=== PATIENT | female | born 1985 | race Caucasian/White ===

== ENCOUNTER → 2016-04-01 | Outpatient (CLI) | payer OTHER, MEDICAID ==
[2016-04-01 09:32] LABS: BASO % 0.6 % (0.0-1.0); EOS # 0.1 K/mm3 (0.0-0.50); EOS % 3.6 % (0.0-3.0); LARGE UNSTAINED CELL # 0.1 K/mm3 (0.0-0.4); LARGE UNSTAINED CELL % 2.7 % (0.0-4.0); LYMPH # 0.9 K/mm3 (1.5-4.5); LYMPH % 24.7 % (24.0-44.0); MEAN CORPUSCULAR HEMOGLOBIN 21.5 pg (27.0-33.0); MEAN CORPUSCULAR HGB CONC 31.1 g/dl (32.0-36.5); MONO # 0.3 K/mm3 (0.0-0.8); MONO % 6.8 % (0.0-5.0); NEUTROPHILS # 2.3 K/mm3 (1.8-7.7); NEUTROPHILS % 61.6 % (36.0-66.0); PLATELET COUNT, AUTOMATED 236 k/mm3 (150-450); RED CELL DISTRIBUTION WIDTH 14.8 % (11.5-14.5); WHITE BLOOD COUNT 3.6 K/mm3 (4.0-10.0)
[2016-04-01 09:56] LABS: ADD MORPHOLOGY? YES
[2016-04-01 09:58] LABS: FERRITIN 3 NG/ML (8-252)
[2016-04-01 10:02] LABS: ANISOCYTOSIS 1+; HYPOCHROMASIA 2+; MICROCYTOSIS 3+; OVALOCYTES 1+
== END ==
LOC: M WUC 08:31
PROVIDERS: ATTEND Family Medicine Addiction Medicine
DX: D64.9 Anemia, unspecified (principal)

== ENCOUNTER → 2016-08-02 | Outpatient (REF) | payer OTHER | LOC: M LAB REF 17:08 | PROVIDERS: ATTEND Advanced Practice Midwife | DX: Z12.4 Encounter for screening for malignant neoplasm of cervix (principal); R87.610 Atypical squamous cells of undetermined significance on cytologic smear of cervix (ASC-US) ==

== ENCOUNTER → 2016-09-27 | Day surgery (SDC) | payer OTHER, MEDICAID ==
[~2016-09-27] VITALS: Ht 167.6 cm; Wt 95.3 kg
[~2016-09-27] MED LIST: BUPIVACAINE HCL 0.25% 10 ML VIAL As Ordered ONE; IBUP1TAB7 PO; KETOROLAC 30 MG/ML VIAL (J1885) IV SCH; KETOROLAC 60 MG/2 ML VIAL (J1885) As Ordered ONE; LR 1,000 ML IV ONE; LR 1,000 ML IV SCH; MIDAZOLAM INJ 2 MG/2 ML VIAL (J2250) As Ordered ONE; ONDANSETRON 4MG/2ML VIAL (J2405) As Ordered ONE; ONDANSETRON 4MG/2ML VIAL (J2405) IV PRN; PERCOCET 5MG/325MG TAB PO PRN; PERCOCET PO; PROPOFOL 500 MG/50 ML VIAL As Ordered ONE; SCOPOLAMINE 1.5 MG TRANSDERMAL As Ordered ONE; SUGAMMADEX SODIUM 500 MG/5 ML VIAL (BRIDION) As Ordered ONE; ZOLO100T PO; dexameTHASONE 4 MG/ML 1ML VIAL (J1100) As Ordered ONE; fentaNYL 100 MCG/2 ML INJECTION (J3010) As Ordered ONE; fentaNYL 100 MCG/2 ML INJECTION (J3010) IV PRN
[2016-09-27 10:02] LABS: MEAN CORPUSCULAR HEMOGLOBIN 20.3 pg (27.0-33.0); MEAN CORPUSCULAR HGB CONC 30.2 g/dl (32.0-36.5); MEAN CORPUSCULAR VOLUME 67.2 fl (80.0-96.0); RED CELL DISTRIBUTION WIDTH 16.4 % (11.5-14.5); WHITE BLOOD COUNT 4.5 K/mm3 (4.0-10.0)
[2016-09-27 10:24] LABS: CONTROL LINE HCG INT CTR LINE PRESENT
--- NOTE | 2016-09-27 12:50 | RO ---
DATE OF PROCEDURE: 09/27/2016 PREPROCEDURE DIAGNOSIS: Satisfied parity with undesired fertility. POSTPROCEDURE DIAGNOSIS: Satisfied parity with undesired fertility. PROCEDURE: Laparoscopic bilateral tubal ligation using Filshie clips. SURGEON: Lashae Nieves M.D. TONGUE STITCHER: Sagar, PGY-1 ANESTHESIA: General endotracheal anesthesia. ESTIMATED BLOOD LOSS: 5 mL. INTRAVENOUS FLUIDS: 700 mL of lactated Ringer solution. URINE OUTPUT: 400 mL. SPECIMENS: None. PREOPERATIVE ANTIBIOTICS: None. OPERATIVE FINDINGS: Patient with normal appearing uterus, bilateral adnexa, area in the posterior cul-de-sac consistent with peritoneal endometriosis. INDICATION FOR OPERATION: 31-year-old 2, para 2 who has expressed satisfied parity with undesired fertility. She has been counseled on alternative options for contraception and declined and desires to proceed with permanent sterilization. DESCRIPTION OF OPERATION: After informed consent was obtained and written consent was reviewed, the patient was brought to the operating room where general endotracheal anesthesia was obtained. She was then placed in the lithotomy position, and was prepped and draped in a normal sterile fashion. A time out in the operating room was then performed identifying the patient, procedure to be performed as well as drug allergies. A bivalve speculum was then placed in the vagina revealing the cervix. The anterior lip of the cervix was grasped with a single tooth tenaculum. A Hulka tenaculum was then advanced through the cervical os for means to manipulate the uterus. The single tooth tenaculum and speculum was then removed. A Lackey catheter was then placed and set to gravity. Gloves were changed and attention was turned to the patient's abdomen where 0.25% Marcaine was infused in umbilical region. This area was then incised and a 5 mm trocar and sleeve was advanced through the incision. The laparoscope was then replaced revealing intra- abdominal placement. Pneumoperitoneum was then obtained using CO2 gas. The abdomen was then surveyed showing with the above noted findings. A second port was placed. This was 2 cm above the pubis symphysis in the midline. This area was infused with 0.25% Marcaine. Incision was made in this area and an 8 mm trocar and sleeve was advanced through this incision under direct visualization. Next, the right fallopian tube was followed out to the fimbriated end. Using a Filshie clip applicator, a Filshie clip was applied in the mid isthmic portion of the fallopian tube with good blanching noted. The Filshie clip applicator was reloaded. The right fallopian tube was then followed out to the fimbriated end and using the Filshie clip applicator, a Filshie clip was then applied in mid isthmic portion of that fallopian tube with good blanching noted. Instruments were then removed from the patient's abdomen. The pneumoperitoneum was then released. Trocars were removed. Skin incisions closed with #4-0 Monocryl and was dressed with Dermabond. The tenaculum was then removed. Tenaculum sites were noted to be hemostatic. Lackey catheter was removed. The patient was taken out of lithotomy position, was awakened from general anesthesia and taken to recovery in stable condition. Counts were correct. MTDD
[2016-09-27 15:00] VITALS: BP 119/67
== END | disposition home or self-care (01) ==
LOC: M SDC 09:28
PROVIDERS: ATTEND Obstetrics & Gynecology
DX: Z30.2 Encounter for sterilization (principal); F41.9 Anxiety disorder, unspecified; Z79.899 Other long term (current) drug therapy
CPT/HCPCS: 36415; 58671; 84703; 85027; 86850; 86900; 86901; A4649; J1100; J1885; J2250; J2405; J3010

== ENCOUNTER → 2018-03-28 | Outpatient (REF) | payer OTHER, MEDICAID ==
[~2018-03-28] MED LIST changes: -BUPIVACAINE HCL 0.25% 10 ML VIAL As Ordered ONE; -KETOROLAC 30 MG/ML VIAL (J1885) IV SCH; -KETOROLAC 60 MG/2 ML VIAL (J1885) As Ordered ONE; -LR 1,000 ML IV ONE; -LR 1,000 ML IV SCH; -MIDAZOLAM INJ 2 MG/2 ML VIAL (J2250) As Ordered ONE; -ONDANSETRON 4MG/2ML VIAL (J2405) As Ordered ONE; -ONDANSETRON 4MG/2ML VIAL (J2405) IV PRN; -PERCOCET 5MG/325MG TAB PO PRN; -PROPOFOL 500 MG/50 ML VIAL As Ordered ONE; -SCOPOLAMINE 1.5 MG TRANSDERMAL As Ordered ONE; -SUGAMMADEX SODIUM 500 MG/5 ML VIAL (BRIDION) As Ordered ONE; -dexameTHASONE 4 MG/ML 1ML VIAL (J1100) As Ordered ONE; -fentaNYL 100 MCG/2 ML INJECTION (J3010) As Ordered ONE; -fentaNYL 100 MCG/2 ML INJECTION (J3010) IV PRN
[2018-03-30 15:05] LABS: HPV HYBRID CAPTURE II Negative (Negative)
== END ==
LOC: M LAB REF 09:21
PROVIDERS: ATTEND Advanced Practice Midwife
DX: Z12.4 Encounter for screening for malignant neoplasm of cervix (principal)

== ENCOUNTER → 2018-08-03 | Outpatient (CLI) | payer OTHER, MEDICAID ==
[2018-08-03 13:30] LABS: BASO % 0.8 % (0.0-1.0); EOS # 0.1 10^3/uL (0.0-0.50); EOS % 2.7 % (0.0-3.0); HEMATOCRIT 33.8 % (36.0-47.0); HEMOGLOBIN 9.5 g/dl (12.0-15.5); LYMPH # 1.1 10^3/uL (1.5-4.5); MEAN CORPUSCULAR HGB CONC 28.1 g/dl (32.0-36.5); MEAN CORPUSCULAR VOLUME 63.9 fl (80.0-96.0); MONO # 0.4 10^3/uL (0.0-0.8); MONO % 8.8 % (0.0-5.0); NEUTROPHILS # 3.1 10^3/uL (1.8-7.7); NEUTROPHILS % 64.5 % (36.0-66.0); PLATELET COUNT, AUTOMATED 412 10^3/uL (150-450); RED BLOOD COUNT 5.29 10^6/uL (4.00-5.40); WHITE BLOOD COUNT 4.8 10^3/uL (4.0-10.0)
[2018-08-03 13:32] LABS: APPEARANCE, URINE CLEAR (CLEAR); BACTERIA, URINE AUTO 1+ (NEGATIVE); BILIRUBIN, URINE AUTO NEGATIVE (NEGATIVE); BLOOD, URINE BLOOD NEGATIVE (NEGATIVE); COLOR, URINE STRAW (YELLOW); GLUCOSE, URINE (UA) AUTO NEGATIVE (NEGATIVE); KETONE, URINE AUTO NEGATIVE (NEGATIVE); LEUKOCYTE ESTERASE, URINE AUTO NEGATIVE (NEGATIVE); NITRITE, URINE AUTO NEGATIVE (NEGATIVE); PROTEIN, URINE AUTO NEGATIVE (NEGATIVE); RBC, URINE AUTO 0 /HPF (0-3); SPECIFIC GRAVITY URINE AUTO 1.005 (1.002-1.035); SQUAMOUS EPITHELIAL CELL UR AU 0 /HPF (0-6); UROBILINOGEN, URINE AUTO 0.2 mg/dL (0.0-2.0); WBC, URINE AUTO 0 /HPF (0-3)
[2018-08-03 13:42] LABS: ALBUMIN 3.9 GM/DL (3.2-5.2); ALT/SGPT 15 U/L (12-78); BILIRUBIN,TOTAL 0.5 MG/DL (0.2-1.0); BLOOD UREA NITROGEN 10 MG/DL (7-18); CALCIUM LEVEL 9.1 MG/DL (8.5-10.1); CARBON DIOXIDE LEVEL 27 MEQ/L (21-32); CHLORIDE LEVEL 108 MEQ/L (98-107); CHOLESTEROL LEVEL 157 MG/DL (<200); FREE T4 0.92 NG/DL (0.76-1.46); GLOMERULAR FILTRATION RATE > 60.0 (>60); GLUCOSE, FASTING 89 MG/DL (70-100); HDL CHOLESTEROL 48 MG/DL (>40); LDL CHOLESTEROL 99 MG/DL (<100); NON-HDL-C 109 MG/DL; POTASSIUM SERUM 4.5 MEQ/L (3.5-5.1); SODIUM LEVEL 140 MEQ/L (136-145); TOTAL PROTEIN 6.9 GM/DL (6.4-8.2); TRIGLYCERIDES LEVEL 49 MG/DL (<150)
[2018-08-03 13:45] LABS: TOTAL 25(OH) VITAMIN D 21.9 NG/ML (30.0-100.0)
[2018-08-03 14:15] LABS: HEMOGLOBIN A1c 5.1 %
[2018-08-04 14:11] LABS: Lyme Disease IgG/IgM Antibodie <0.91 ISR (0.00-0.90); Lyme Disease IgM Ab Quantitati <0.80 index (0.00-0.79)
== END ==
LOC: M WUC 08:39
PROVIDERS: ATTEND Family Medicine
DX: Z13.228 Encounter for screening for other metabolic disorders (principal); Z00.01 Encounter for general adult medical examination with abnormal findings

== ENCOUNTER → 2019-01-29 | Outpatient (REF) | payer OTHER, MEDICAID ==
[2019-01-29 15:26] LABS: BASO % 0.6 % (0.0-1.0); EOS # 0.1 10^3/uL (0.0-0.5); EOS % 1.4 % (0.0-3.0); HEMOGLOBIN 9.7 g/dl (12.0-15.5); LYMPH # 1.2 10^3/uL (1.5-5.0); LYMPH % 19.5 % (24.0-44.0); MEAN CORPUSCULAR HEMOGLOBIN 18.2 pg (27.0-33.0); MEAN CORPUSCULAR HGB CONC 27.7 g/dl (32.0-36.5); MEAN CORPUSCULAR VOLUME 65.8 fl (80.0-96.0); MONO # 0.6 10^3/uL (0.0-0.8); NEUTROPHILS # 4.3 10^3/uL (1.5-8.5); NEUTROPHILS % 69.2 % (36.0-66.0); PLATELET COUNT, AUTOMATED 316 10^3/uL (150-450); RED BLOOD COUNT 5.32 10^6/uL (4.00-5.40); WHITE BLOOD COUNT 6.2 10^3/uL (4.0-10.0)
[2019-01-29 16:01] LABS: TOTAL 25(OH) VITAMIN D 23.1 NG/ML (30.0-100.0)
== END ==
LOC: M LAB REF 14:48
PROVIDERS: ATTEND Family Medicine
DX: D64.89 Other specified anemias (principal); E55.9 Vitamin D deficiency, unspecified

== ENCOUNTER → 2019-07-25 | Outpatient (REF) | payer MEDICAID, OTHER ==
[~2019-07-25] MED LIST changes: +VALA1TAB5 PO; +VITA100054 PO; +[UNRECOGNIZED DRUG - OTHER] PO
== END ==
LOC: M LAB REF 09:53
PROVIDERS: ATTEND Internal Medicine Gastroenterology
DX: D50.9 Iron deficiency anemia, unspecified (principal)

== ENCOUNTER 2019-09-23 19:36 | Emergency (ER) | payer OTHER ==
[~2019-09-23] VITALS: Ht 167.6 cm; Wt 87.3 kg
[2019-09-23 19:36] VITALS: BP 131/82
[2019-09-23] MEDS ORDERED: BACT800T5 PO (19:41)
[2019-09-23] MEDS ORDERED: CEPHALEXIN 500 MG CAP PO ONE (20:15)
[2019-09-23] MEDS ORDERED: diphenhydrAMINE 50MG CAP PO ONE (20:15)
[2019-09-23] MEDS ORDERED: BENA25CA4 PO (20:17)
[2019-09-23] MEDS ORDERED: KEFL500C17 PO (20:17)
== END 2019-09-23 20:33 | disposition home or self-care (01) ==
LOC: M ED 19:36
DX: S30.861A Insect bite (nonvenomous) of abdominal wall, initial encounter (principal); D64.9 Anemia, unspecified; W57.XXXA Bitten or stung by nonvenomous insect and other nonvenomous arthropods, initial encounter; Y92.9 Unspecified place or not applicable; F41.9 Anxiety disorder, unspecified; Y99.9 Unspecified external cause status; Y93.9 Activity, unspecified; Z79.899 Other long term (current) drug therapy; Z88.2 Allergy status to sulfonamides; Z88.5 Allergy status to narcotic agent; Z88.8 Allergy status to other drugs, medicaments and biological substances

== ENCOUNTER 2019-09-26 21:05 | Emergency (ER) | payer OTHER ==
[~2019-09-26] VITALS: Ht 167.6 cm; Wt 87.2 kg
[~2019-09-26 21:05] MED LIST changes: +BACT800T5 PO; +BENA25CA4 PO; +KEFL500C17 PO
[2019-09-26 22:48] LABS: BASO % 0.6 % (0.0-1.0); EOS # 0.1 10^3/uL (0.0-0.5); EOS % 2.2 % (0.0-3.0); HEMATOCRIT 41.9 % (36.0-47.0); HEMOGLOBIN 13.8 g/dl (12.0-15.5); LYMPH # 1.5 10^3/uL (1.5-5.0); LYMPH % 29.7 % (24.0-44.0); MEAN CORPUSCULAR HEMOGLOBIN 26.8 pg (27.0-33.0); MEAN CORPUSCULAR HGB CONC 32.9 g/dl (32.0-36.5); MEAN CORPUSCULAR VOLUME 81.5 fl (80.0-96.0); MONO # 0.4 10^3/uL (0.0-0.8); MONO % 7.7 % (0.0-5.0); NEUTROPHILS % 59.4 % (36.0-66.0); PLATELET COUNT, AUTOMATED 328 10^3/uL (150-450); RED BLOOD COUNT 5.14 10^6/uL (4.00-5.40); WHITE BLOOD COUNT 5.1 10^3/uL (4.0-10.0)
[2019-09-26 23:20] LABS: ERYTHROCYTE SEDIMENTATION RATE 14 mm/hr (0-20)
[2019-09-26 23:25] LABS: BLOOD UREA NITROGEN 13 MG/DL (7-18); CALCIUM LEVEL 8.6 MG/DL (8.5-10.1); CARBON DIOXIDE LEVEL 29 MEQ/L (21-32); CHLORIDE LEVEL 106 MEQ/L (98-107); CREATININE FOR GFR 0.76 MG/DL (0.55-1.30); GLOMERULAR FILTRATION RATE > 60.0 (>60); GLUCOSE, FASTING 85 MG/DL (70-100); POTASSIUM SERUM 3.7 MEQ/L (3.5-5.1); SODIUM LEVEL 139 MEQ/L (136-145)
[2019-09-27] MEDS ORDERED: DOXYCYCLINE HYCLATE 100MG TABLET PO ONE
[2019-09-27] MEDS ORDERED: DOXY100C37 PO (00:13)
[2019-09-27 00:38] VITALS: BP 119/71
[2019-09-29 15:07] LABS: Lyme Disease IgG Ab 18 kDa Ban Absent (.); Lyme Disease IgG Ab 23 kDa Ban Present (.); Lyme Disease IgG Ab 28 kDa Ban Absent (.); Lyme Disease IgG Ab 30 kDa Ban Absent (.); Lyme Disease IgG Ab 39 kDa Ban Absent (.); Lyme Disease IgG Ab 41 kDa Ban Absent (.); Lyme Disease IgG Ab 45 kDa Ban Absent (.); Lyme Disease IgG Ab 58 kDa Ban Absent (.); Lyme Disease IgG Ab 66 kDa Ban Absent (.); Lyme Disease IgG Ab 93 kDa Ban Absent (.); Lyme Disease IgG West Blot Int Negative (.); Lyme Disease IgG/IgM Antibodie 2.36 ISR (0.00-0.90); Lyme Disease IgM Ab 23 kDa Ban Present (.); Lyme Disease IgM Ab 39 kDa Ban Present (.); Lyme Disease IgM Ab 41 kDa Ban Present (.); Lyme Disease IgM Ab Quantitati 9.12 index (0.00-0.79); Lyme Disease IgM West Blot Int Positive (.)
== END 2019-09-27 00:40 | disposition home or self-care (01) ==
LOC: M ED 21:05
DX: R21 Rash and other nonspecific skin eruption (principal); S30.860A Insect bite (nonvenomous) of lower back and pelvis, initial encounter; W57.XXXA Bitten or stung by nonvenomous insect and other nonvenomous arthropods, initial encounter; Y92.9 Unspecified place or not applicable; Y93.9 Activity, unspecified; Y99.9 Unspecified external cause status; Z79.899 Other long term (current) drug therapy; Z88.8 Allergy status to other drugs, medicaments and biological substances

== ENCOUNTER → 2019-11-18 | Outpatient (CLI) | payer OTHER ==
[~2019-11-18] MED LIST changes: +DOXY100C37 PO
== END ==
LOC: M LABSMTC 09:12
PROVIDERS: ATTEND Anesthesiology
DX: Z01.812 Encounter for preprocedural laboratory examination (principal); Z20.828 Contact with and (suspected) exposure to other viral communicable diseases
CPT/HCPCS: C9803; U0003

== ENCOUNTER 2019-11-23 10:59 | Day surgery (SDC) | payer OTHER ==
[~2019-11-23] VITALS: Ht 167.6 cm; Wt 83.9 kg
[~2019-11-23 10:59] MED LIST changes: +LIDOCAINE 2% 100MG/5ML SDV (FOR ANES.) As Ordered ONE; +NS 1,000 ML IV ONE; +propofoL 200 MG/20 ML VIAL As Ordered ONE
[2019-11-23] MEDS ORDERED: fentaNYL 100 MCG/2 ML INJECTION (J3010) As Ordered ONE (11:19)
[2019-11-23] MEDS ORDERED: propofoL 200 MG/20 ML VIAL As Ordered ONE (12:58)
[2019-11-23 13:30] VITALS: BP 124/79
--- NOTE | 2019-11-28 11:38 | ROOR ---
Patient Name: Allie Victoria Procedure Date: 11/23/2019 12:35 PM Date of : 1985 Age: 34 Room: [facility] Gender: Female Note Status: Finalized Procedure: Upper GI endoscopy Indications: Iron deficiency anemia Providers: Tex FOOTE MD Referring MD: [facility], Admin., Casie LIRIANO NP Requesting Provider: Medicines: Monitored Anesthesia Care Complications: No immediate complications. Procedure: Pre-Anesthesia Assessment: - The heart rate, respiratory rate, oxygen saturations, blood pressure, adequacy of pulmonary ventilation, and response to care were monitored throughout the procedure. The Endoscope was introduced through the mouth, and advanced to the third part of duodenum. The upper GI endoscopy was accomplished without difficulty. The patient tolerated the procedure well. Findings: The esophagus was normal. The stomach was normal. The examined duodenum was normal. Biopsies for histology were taken with a cold forceps in the second portion of the duodenum and in the third portion of the duodenum for evaluation of celiac disease. Impression: - Normal esophagus. - Normal stomach. - Normal examined duodenum. - Biopsies were taken with a cold forceps for evaluation of celiac disease. Recommendation: - Telephone endoscopist for pathology results in 2 weeks. Tex Foote MD Tex FOOTE MD 11/23/2019 12:49:27 PM Electronically signed by Tex FOOTE MD Number of Addenda: 0 Note Initiated On: 11/23/2019 12:35 PM Estimated Blood Loss: Estimated blood loss: none.
--- NOTE | 2019-11-28 11:38 | ROOR ---
Patient Name: Allie Victoria Procedure Date: 11/23/2019 12:37 PM Date of : 1985 Age: 34 Room: [id number] Gender: Female Note Status: Finalized Procedure: Colonoscopy Indications: Iron deficiency anemia Providers: Tex FOOTE MD Referring MD: Casie LIRIANO NP, [facility], Admin. Requesting Provider: Medicines: Monitored Anesthesia Care Complications: No immediate complications. Procedure: Pre-Anesthesia Assessment: - The heart rate, respiratory rate, oxygen saturations, blood pressure, adequacy of pulmonary ventilation, and response to care were monitored throughout the procedure. The Colonoscope was introduced through the anus and advanced to 10 cm into the ileum. The colonoscopy was performed without difficulty. The patient tolerated the procedure well. The quality of the bowel preparation was good. Findings: The perianal and digital rectal examinations were normal. The terminal ileum appeared normal. The colon (entire examined portion) appeared normal. Impression: - The examined portion of the ileum was normal. - The entire colon is normal. - No specimens collected. Recommendation: - Return to referring physician as previously scheduled. Tex Foote MD Tex FOOTE MD 11/23/2019 1:04:59 PM Electronically signed by Tex FOOTE MD Number of Addenda: 0 Note Initiated On: 11/23/2019 12:37 PM Estimated Blood Loss: Estimated blood loss: none.
== END 2019-11-23 13:40 | disposition home or self-care (01) ==
LOC: M OPP 10:59
PROVIDERS: ATTEND Internal Medicine Gastroenterology
DX: D50.9 Iron deficiency anemia, unspecified (principal); Z79.899 Other long term (current) drug therapy; Z88.5 Allergy status to narcotic agent
CPT/HCPCS: 43239; 45378; 88305; J3010

== ENCOUNTER → 2019-12-04 | Outpatient (REF) | payer OTHER, MEDICAID ==
[~2019-12-04] MED LIST changes: -LIDOCAINE 2% 100MG/5ML SDV (FOR ANES.) As Ordered ONE; -NS 1,000 ML IV ONE; -propofoL 200 MG/20 ML VIAL As Ordered ONE
[2019-12-04 12:51] LABS: ALBUMIN 3.9 GM/DL (3.2-5.2); ALT/SGPT 17 U/L (12-78); BILIRUBIN,TOTAL 0.6 MG/DL (0.2-1.0); BLOOD UREA NITROGEN 10 MG/DL (7-18); CALCIUM LEVEL 8.7 MG/DL (8.5-10.1); CARBON DIOXIDE LEVEL 28 MEQ/L (21-32); CHLORIDE LEVEL 108 MEQ/L (98-107); CHOLESTEROL LEVEL 155 MG/DL (<200); CHOLESTEROL RISK RATIO 2.719 (<5); CREATININE FOR GFR 0.65 MG/DL (0.55-1.30); GLOMERULAR FILTRATION RATE > 60.0 (>60); GLUCOSE, FASTING 88 MG/DL (70-100); HDL CHOLESTEROL 57 MG/DL (>40); LDL CHOLESTEROL 84 MG/DL (<100); NON-HDL-C 98 MG/DL; POTASSIUM SERUM 4.1 MEQ/L (3.5-5.1); SODIUM LEVEL 139 MEQ/L (136-145); TOTAL PROTEIN 7.6 GM/DL (6.4-8.2); TRIGLYCERIDES LEVEL 69 MG/DL (<150)
[2019-12-04 13:37] LABS: TOTAL 25(OH) VITAMIN D 32.9 NG/ML (30.0-100.0)
== END ==
LOC: M LAB REF 11:08
PROVIDERS: ATTEND Physician Assistant
DX: Z13.220 Encounter for screening for lipoid disorders (principal); E55.9 Vitamin D deficiency, unspecified; Z12.39 Encounter for other screening for malignant neoplasm of breast

== ENCOUNTER → 2021-04-27 | Outpatient (REF) | payer OTHER ==
[~2021-04-27] MED LIST changes: +D31000TA2 PO; +DOXY-443 PO; -DOXY100C37 PO; +[UNRECOGNIZED DRUG - OTHER] PO
== END ==
LOC: M SFHCWAGY 13:20
PROVIDERS: ATTEND Advanced Practice Midwife
DX: Z12.4 Encounter for screening for malignant neoplasm of cervix (principal)

== ENCOUNTER → 2021-05-11 | Outpatient (CLI) | payer OTHER | LOC: M WHC 15:48 | PROVIDERS: ATTEND Advanced Practice Midwife | DX: D25.9 Leiomyoma of uterus, unspecified (principal); N83.292 Other ovarian cyst, left side; N92.0 Excessive and frequent menstruation with regular cycle ==

== ENCOUNTER → 2021-09-02 | Outpatient (CLI) | payer OTHER ==
[~2021-09-02] MED LIST changes: -D31000TA2 PO; +DRIS50003 PO; +VITA100093 PO
== END ==
LOC: M WHC 10:12
PROVIDERS: ATTEND Physician Assistant
DX: R22.9 Localized swelling, mass and lump, unspecified (principal)

== ENCOUNTER → 2022-02-09 | Outpatient (REF) | payer OTHER | LOC: M SFHCDERM 14:12 | PROVIDERS: ATTEND Nurse Practitioner Family | DX: D18.09 Hemangioma of other sites (principal) ==

== ENCOUNTER → 2022-06-17 | Outpatient (REF) | payer OTHER ==
[~2022-06-17] MED LIST changes: +OCUVCAP PO
== END ==
LOC: M SFHCDERM 14:06
PROVIDERS: ATTEND Nurse Practitioner Family
DX: D22.39 Melanocytic nevi of other parts of face (principal)

== ENCOUNTER → 2022-08-23 | Outpatient (REF) | payer OTHER ==
[2022-08-23 18:19] LABS: CHOLESTEROL RISK RATIO 2.79 (<5); HDL CHOLESTEROL 56.2 MG/DL (>40); NON-HDL-C 100.8 MG/DL
[2022-08-23 18:20] LABS: THYROID STIMULATING HORMONE 2.235 uIU/ML (0.55-4.78); TOTAL 25(OH) VITAMIN D 28.8 NG/ML (20.0-100.0)
== END ==
LOC: M LAB REF 16:35
PROVIDERS: ATTEND Physician Assistant
DX: E55.9 Vitamin D deficiency, unspecified (principal); Z13.228 Encounter for screening for other metabolic disorders; R53.83 Other fatigue; E66.9 Obesity, unspecified; Z13.220 Encounter for screening for lipoid disorders

== ENCOUNTER 2023-04-01 10:49 | Outpatient (CLI) | payer OTHER ==
[~2023-04-01] VITALS: Ht 170.2 cm; Wt 104.5 kg
[~2023-04-01 10:49] MED LIST changes: +LEXA1TAB2 PO; +VITA200016 PO
[2023-04-01] MEDS ORDERED: dexAMETHasone 4 MG TAB PO ONE (11:00)
[2023-04-01] MEDS ORDERED: diphenhydrAMINE 25MG CAP PO ONE (11:00)
[2023-04-01] MEDS ORDERED: ACETAMINOPHEN TAB 650MG DOSE (2X325MG) PO ONE (11:00)
[2023-04-01] MEDS ORDERED: IRON SUCROSE 300 MG in NS 250 ML OVER 90 MIN. IV ONE (11:00)
[2023-04-01 11:15] VITALS: BP 132/84; O2SAT 99
[2023-04-01 12:53] VITALS: BP 129/70; O2SAT 99
== END 2023-04-01 12:55 ==
LOC: M INFU 10:49
PROVIDERS: ATTEND Internal Medicine Medical Oncology
DX: D50.9 Iron deficiency anemia, unspecified (principal); Z88.5 Allergy status to narcotic agent; Z88.8 Allergy status to other drugs, medicaments and biological substances
CPT/HCPCS: 96365; J1756

== ENCOUNTER → 2023-11-18 | Outpatient (REF) | payer OTHER ==
[~2023-11-18] MED LIST changes: +DOXY-323 PO; -DOXY-443 PO
[2023-11-18 18:02] LABS: Trichomonas vaginalis (AMP) NOT DETECTED (NEGATIVE)
[2023-11-18 18:26] LABS: GC DNA AMPLIFICATION NEGATIVE (NEGATIVE)
== END ==
LOC: M LAB REF 16:05
PROVIDERS: ATTEND Physician Assistant
DX: N89.8 Other specified noninflammatory disorders of vagina (principal)

== ENCOUNTER → 2024-01-13 | Outpatient (REF) | payer OTHER ==
[~2024-01-13] MED LIST changes: -DOXY-323 PO; +DOXY-441 PO
== END ==
LOC: M LAB REF 17:32
PROVIDERS: ATTEND Nurse Practitioner Family
DX: N76.0 Acute vaginitis (principal)

== ENCOUNTER → 2024-01-24 | Outpatient (REF) | payer OTHER ==
[2024-01-27 14:07] LABS: HPV APTIMA Not Detected (Not Detected)
== END ==
LOC: M SFHCWAGY 15:04
PROVIDERS: ATTEND Advanced Practice Midwife
DX: Z12.4 Encounter for screening for malignant neoplasm of cervix (principal)

== ENCOUNTER → 2024-02-29 | Outpatient (CLI) | payer OTHER | LOC: M WHC 14:55 | PROVIDERS: ATTEND Advanced Practice Midwife | DX: N92.4 Excessive bleeding in the premenopausal period (principal) ==

== ENCOUNTER → 2024-03-12 | Outpatient (CLI) | payer OTHER ==
[2024-03-12 15:46] LABS: BASO % 0.5 % (0.0-1.0); EOS # 0.1 10^3/uL (0.0-0.5); HEMATOCRIT 44.2 % (36.0-47.0); HEMOGLOBIN 14.7 g/dl (12.0-15.5); LYMPH # 1.2 10^3/uL (1.5-5.0); LYMPH % 20.5 % (24.0-44.0); MEAN CORPUSCULAR HEMOGLOBIN 28.4 pg (27.0-33.0); MEAN CORPUSCULAR HGB CONC 33.3 g/dl (32.0-36.5); MEAN CORPUSCULAR VOLUME 85.5 fl (80.0-96.0); MONO # 0.5 10^3/uL (0.0-0.8); MONO % 7.6 % (2.0-8.0); NEUTROPHILS # 4.1 10^3/uL (1.5-8.5); NEUTROPHILS % 69.1 % (36.0-66.0); PLATELET COUNT, AUTOMATED 248 10^3/uL (150-450); RED BLOOD COUNT 5.17 10^6/uL (4.00-5.40); WHITE BLOOD COUNT 5.9 10^3/uL (4.0-10.0)
[2024-03-12 16:05] LABS: URIC ACID 3.6 MG/DL (3.1-7.8)
[2024-03-12 16:07] LABS: C REACTIVE PROTEIN QUANTITATIV < 0.50 MG/DL (<1.0); ERYTHROCYTE SEDIMENTATION RATE 4 mm/hr (0-20)
[2024-03-12 16:08] LABS: ALBUMIN 3.6 G/DL (3.2-5.2); ALKALINE PHOSPHATASE 48 U/L (35-104); ALT/SGPT 16 U/L (7.0-40); AST/SGOT 10 U/L (<34); BILIRUBIN,TOTAL 0.4 MG/DL (0.3-1.2); BLOOD UREA NITROGEN 15 MG/DL (9-23); CARBON DIOXIDE LEVEL 29 MMOL/L (20-31); CHLORIDE LEVEL 107 MMOL/L (98-107); CREATININE FOR GFR 0.65 MG/DL (0.55-1.30); GLOMERULAR FILTRATION RATE > 60.0 (>58); GLUCOSE, FASTING 100 MG/DL (60-100); RHEUMATOID FACTOR QUANT < 3.5 IU/ML (<14); SODIUM LEVEL 142 MMOL/L (136-145)
== END ==
LOC: M LAB 14:48
PROVIDERS: ATTEND Internal Medicine Medical Oncology
DX: D50.9 Iron deficiency anemia, unspecified (principal)

== ENCOUNTER → 2024-04-17 | Outpatient (REF) | payer OTHER | LOC: M SFHCWAGY 17:08 | PROVIDERS: ATTEND Obstetrics & Gynecology | DX: N93.9 Abnormal uterine and vaginal bleeding, unspecified (principal) ==

== ENCOUNTER 2024-06-20 12:15 | Day surgery (SDC) | payer OTHER ==
[~2024-06-20] VITALS: Ht 170.2 cm; Wt 102.1 kg
[~2024-06-20 12:15] MED LIST changes: +PROBCAP14 PO; +VITACAP8 PO
[2024-06-20] MEDS ORDERED: ROCURONIUM BROMIDE 50MG/5ML VIAL As Ordered ONE (12:19)
[2024-06-20] MEDS ORDERED: fentaNYL 100 MCG/2 ML INJECTION As Ordered ONE (12:19)
[2024-06-20] MEDS ORDERED: propofoL 200 MG/20 ML VIAL As Ordered ONE (12:19)
[2024-06-20] MEDS ORDERED: LIDOCAINE 2% 100MG/5ML SDV (FOR ANES.) As Ordered ONE (12:19)
[2024-06-20] MEDS ORDERED: MIDAZOLAM INJ 2MG/2ML VIAL As Ordered ONE (12:20)
[2024-06-20] MEDS ORDERED: LR 1,000 ML IV SCH ×2 (12:35→15:25)
[2024-06-20 12:57] LABS: HEMOGLOBIN 13.8 g/dl (12.0-15.5); MEAN CORPUSCULAR HEMOGLOBIN 27.7 pg (27.0-33.0); MEAN CORPUSCULAR HGB CONC 33.7 g/dl (32.0-36.5); MEAN CORPUSCULAR VOLUME 82.2 fl (80.0-96.0); PLATELET COUNT, AUTOMATED 265 10^3/uL (150-450); RED BLOOD COUNT 4.99 10^6/uL (4.00-5.40); WHITE BLOOD COUNT 6.8 10^3/uL (4.0-10.0)
[2024-06-20] MEDS ORDERED: METHYLENE BLUE 0.5% (5MG/ML) 10 ML AMP (PROVAYBLUE) As Ordered ONE (13:17)
[2024-06-20] MEDS ORDERED: SCOPOLAMINE 1MG TRANSDERMAL PATCH As Ordered ONE (13:41)
[2024-06-20] MEDS: ceFAZolin SOD 2 GM IV ONCE IV ONE (13:43)
[2024-06-20] MEDS: SCOPOLAMINE 1MG TRANSDERMAL PATCH TOP ONE (13:44)
[2024-06-20] MEDS ORDERED: SUGAMMADEX SODIUM 500 MG/5 ML VIAL (BRIDION) As Ordered ONE (15:00)
[2024-06-20] MEDS ORDERED: ONDANSETRON 4MG 2ML VIAL As Ordered ONE (15:00)
[2024-06-20] MEDS ORDERED: KETOROLAC 30 MG/ML 1ML VIAL As Ordered ONE (15:00)
[2024-06-20] MEDS ORDERED: ACETAMINOPHEN 1000MG/100ML IV BAG As Ordered ONE (15:00)
[2024-06-20] MEDS ORDERED: fentaNYL 100 MCG/2 ML INJECTION IV PRN (15:25)
[2024-06-20] MEDS: ONDANSETRON 4MG 2ML VIAL IV PRN (15:57)
[2024-06-20] MEDS: oxyCODONE 5MG TAB PO PRN (15:58)
[2024-06-20] MEDS: HYDROMORPHONE HCL 0.5 MG/ 0.5 ML SYRINGE IV PRN (15:59)
[2024-06-20 16:30] VITALS: BP 121/58; TEMP 97.4; O2SAT 98
== END 2024-06-20 17:15 | disposition home or self-care (01) ==
LOC: M SDC 12:15
PROVIDERS: ATTEND Obstetrics & Gynecology
DX: N93.9 Abnormal uterine and vaginal bleeding, unspecified (principal); D25.9 Leiomyoma of uterus, unspecified; F41.9 Anxiety disorder, unspecified; Z79.899 Other long term (current) drug therapy; Z88.5 Allergy status to narcotic agent; Z88.8 Allergy status to other drugs, medicaments and biological substances
CPT/HCPCS: 36415; 58571; 85027; 86850; 86900; 86901; 88307; J0131; J0665; J0690; J1100; J1171; J1885; J2250; J2405; J3010; Q9968; S2900

== ENCOUNTER → 2024-06-28 | Outpatient (REF) | payer OTHER ==
[~2024-06-28] MED LIST changes: +DOCU100C16 PO; +IBUP80TA PO
== END ==
LOC: M SFHCWAGY 09:56
PROVIDERS: ATTEND Advanced Practice Midwife
DX: R35.0 Frequency of micturition (principal)

== ENCOUNTER 2024-06-30 13:44 | Inpatient (IN) | payer OTHER ==
[~2024-06-30] VITALS: Ht 170.2 cm; Wt 104.4 kg
[~2024-06-30 13:44] MED LIST changes: -DOCU100C16 PO; -IBUP80TA PO
[2024-06-30] MEDS ORDERED: ISOVUE-370 76% 100ML VIAL As Ordered ONE (14:37)
[2024-06-30 14:41] LABS: BASO % 0.2 % (0.0-1.0); EOS # 0.1 10^3/uL (0.0-0.5); EOS % 0.4 % (0.0-3.0); HEMATOCRIT 40.7 % (36.0-47.0); HEMOGLOBIN 13.5 g/dl (12.0-15.5); LYMPH % 7.9 % (24.0-44.0); MEAN CORPUSCULAR HEMOGLOBIN 27.1 pg (27.0-33.0); MEAN CORPUSCULAR HGB CONC 33.2 g/dl (32.0-36.5); MEAN CORPUSCULAR VOLUME 81.7 fl (80.0-96.0); MONO # 1.1 10^3/uL (0.0-0.8); MONO % 8.5 % (2.0-8.0); NEUTROPHILS # 10.4 10^3/uL (1.5-8.5); NEUTROPHILS % 82.7 % (36.0-66.0); PLATELET COUNT, AUTOMATED 342 10^3/uL (150-450); RED BLOOD COUNT 4.98 10^6/uL (4.00-5.40); WHITE BLOOD COUNT 12.6 10^3/uL (4.0-10.0)
[2024-06-30] MEDS: KETOROLAC 30 MG/ML 1ML VIAL IV ONE (14:58)
[2024-06-30] MEDS: NS (Normal Saline) 0.9% 1,000 ML IV ONE (14:59)
[2024-06-30 15:07] LABS: ALBUMIN 3.4 G/DL (3.2-5.2); BILIRUBIN,DIRECT 0.3 MG/DL (<0.4); BILIRUBIN,TOTAL 0.9 MG/DL (0.3-1.2)
[2024-06-30 15:19] LABS: PROCALCITONIN 0.07 ng/ml
[2024-06-30 15:26] LABS: C REACTIVE PROTEIN QUANTITATIV 22.72 MG/DL (<1.0)
[2024-06-30 16:44] LABS: KETONE, URINE AUTO RFX 1+ mg/dL (NEGATIVE); LEUKOCYTE ESTERASE UR AUTO RFX NEGATIVE (NEGATIVE); NITRITE, URINE AUTO RFX NEGATIVE (NEGATIVE); RBC, URINE AUTO RFX 2 /HPF (0-3); SQUAM EPITHELIAL CELL UR AURFX 4 /HPF (0-6); WBC, URINE AUTO RFX 2 /HPF (0-3)
[2024-06-30] MEDS: PIPERACILLIN/TAZOBACTAM SOD 3.375 GM in DEXTROSE 5% (D5W) ADV/MINI-BAG 50 ML IV ONE (17:14)
[2024-06-30] MEDS ORDERED: DOCU100C16 PO (17:27)
[2024-06-30] MEDS ORDERED: IBUP80TA PO (17:27)
[2024-06-30] MEDS ORDERED: HOME MED LIST COMPLETE! XX SCH (17:30)
[2024-06-30] MEDS: ACETAMINOPHEN 500 MG TAB PO ONE (18:53)
[2024-06-30] MEDS: PANTOPRAZOLE 40MG TAB (PROTONIX) PO SCH (18:53)
[2024-06-30 19:00] VITALS: BP 140/79; TEMP 100; O2SAT 99
[2024-06-30] MEDS: LR 1,000 ML IV SCH (19:59)
[2024-06-30] MEDS: DOCUSATE SODIUM 100MG CAPSULE PO SCH (20:27)
[2024-06-30] MEDS: PIPERACILLIN/TAZOBACTAM SOD 3.375 GM in DEXTROSE 5% (D5W) ADV/MINI-BAG 50 ML IV SCH (23:46)
[2024-07-01] VITALS: BP 119/69; TEMP 99.1; O2SAT 98
[2024-07-01] MEDS: KETOROLAC 30 MG/ML 1ML VIAL IV PRN (00:02)
[2024-07-01 07:09] LABS: BASO % 0.2 % (0.0-1.0); EOS # 0.1 10^3/uL (0.0-0.5); EOS % 0.9 % (0.0-3.0); HEMATOCRIT 34.7 % (36.0-47.0); LYMPH # 0.7 10^3/uL (1.5-5.0); LYMPH % 7.4 % (24.0-44.0); MEAN CORPUSCULAR HEMOGLOBIN 26.8 pg (27.0-33.0); MEAN CORPUSCULAR HGB CONC 32.9 g/dl (32.0-36.5); MEAN CORPUSCULAR VOLUME 81.5 fl (80.0-96.0); MONO # 0.7 10^3/uL (0.0-0.8); MONO % 7.2 % (2.0-8.0); NEUTROPHILS # 7.6 10^3/uL (1.5-8.5); NEUTROPHILS % 83.9 % (36.0-66.0); PLATELET COUNT, AUTOMATED 274 10^3/uL (150-450); RED BLOOD COUNT 4.26 10^6/uL (4.00-5.40)
[2024-07-01 07:10] LABS: HEMOGLOBIN 11.4 g/dl (12.0-15.5)
[2024-07-01 07:40] VITALS: BP 127/70; TEMP 101; O2SAT 97
[2024-07-01 08:24] VITALS: TEMP 98.9
[2024-07-01 12:00] VITALS: BP 123/69; TEMP 99.9; O2SAT 97
[2024-07-01] MEDS: ACETAMINOPHEN 500 MG TAB PO PRN (12:34)
[2024-07-01 16:00] VITALS: BP 122/65; TEMP 99; O2SAT 97
[2024-07-01 20:00] VITALS: BP 130/83; TEMP 99.4; O2SAT 99
[2024-07-02] VITALS (11 sets, daily range): BP systolic 106–141; BP diastolic 65–82; TEMP 97.5–99.5; O2SAT 97–100
[2024-07-02] MEDS: NS (Normal Saline) 0.9% 1,000 ML IV SCH ×2 (09:54→14:53)
[2024-07-02] MEDS: ONDANSETRON 4MG 2ML VIAL IV ONE (14:33)
[2024-07-02] MEDS: fentaNYL 100 MCG/2 ML INJECTION IV PRN (14:42)
[2024-07-02] MEDS: MIDAZOLAM INJ 2MG/2ML VIAL IV PRN (14:43)
[2024-07-02] MEDS: LIDOCAINE 1% MDV 20ML VIAL SC SCH (14:53)
[2024-07-02] MEDS: ONDANSETRON 4MG TAB PO PRN (21:03)
[2024-07-03] VITALS: BP 118/73; TEMP 98.2; O2SAT 98
[2024-07-03 04:45] VITALS: BP 122/76; TEMP 98; O2SAT 98
[2024-07-03 08:02] LABS: HEMATOCRIT 32.7 % (36.0-47.0); HEMOGLOBIN 10.8 g/dl (12.0-15.5); MEAN CORPUSCULAR VOLUME 81.8 fl (80.0-96.0); PLATELET COUNT, AUTOMATED 299 10^3/uL (150-450); WHITE BLOOD COUNT 4.4 10^3/uL (4.0-10.0)
[2024-07-03 12:00] VITALS: BP 113/70; TEMP 98.5; O2SAT 96
[2024-07-03 20:00] VITALS: BP 122/79; TEMP 97.9; O2SAT 98
[2024-07-04] VITALS: BP 113/70; TEMP 97.9; O2SAT 97
[2024-07-04 04:30] VITALS: BP 127/77; TEMP 98.2; O2SAT 96
[2024-07-04 08:00] VITALS: BP 135/71; TEMP 98.4; O2SAT 96
[2024-07-04] MEDS ORDERED: IBUP80TA PO (13:05)
[2024-07-04] MEDS ORDERED: AMOX875T2 PO (13:19)
== END 2024-07-04 14:20 | disposition home or self-care (01) | DRG 791 ==
LOC: M ED 13:44 → M ED INP 17:44 → M PED 18:59
PROVIDERS: ADMIT Specialist; ATTEND Specialist
PROC: 0UQ Female Reproductive System, Repair (ICD-10-PCS; principal; 2024-07-02 11:30)
DX: N99.841 Postprocedural hematoma of a genitourinary system organ or structure following other procedure (principal); N89.8 Other specified noninflammatory disorders of vagina; Z88.5 Allergy status to narcotic agent; Z88.2 Allergy status to sulfonamides; Z88.8 Allergy status to other drugs, medicaments and biological substances; Z79.899 Other long term (current) drug therapy

== ENCOUNTER → 2024-10-23 | Outpatient (REF) | payer OTHER ==
[~2024-10-23] MED LIST changes: +AMOX875T2 PO; +DOCU100C16 PO; +IBUP80TA PO
[2024-10-23 18:02] LABS: APPEARANCE, URINE CLEAR (CLEAR); BACTERIA, URINE AUTO NEGATIVE (NEGATIVE); BILIRUBIN, URINE AUTO NEGATIVE (NEGATIVE); BLOOD, URINE BLOOD NEGATIVE (NEGATIVE); GLUCOSE, URINE (UA) AUTO NEGATIVE (NEGATIVE); KETONE, URINE AUTO TRACE mg/dL (NEGATIVE); LEUKOCYTE ESTERASE, URINE AUTO NEGATIVE (NEGATIVE); NITRITE, URINE AUTO NEGATIVE (NEGATIVE); PROTEIN, URINE AUTO NEGATIVE (NEGATIVE); RBC, URINE AUTO 1 /HPF (0-3); SPECIFIC GRAVITY URINE AUTO 1.011 (1.002-1.035); SQUAMOUS EPITHELIAL CELL UR AU 2 /HPF (0-6); UROBILINOGEN, URINE AUTO 0.2 mg/dL (0.0-2.0); WBC, URINE AUTO 0 /HPF (0-3)
[2024-10-23 18:27] LABS: TOTAL PROTEIN,RANDOM URINE 8.6 MG/DL (0.0-14.0)
[2024-10-23 18:41] LABS: BASO # 0.0 10^3/uL (0.0-0.2); BASO % 0.5 % (0.0-1.0); EOS # 0.1 10^3/uL (0.0-0.5); EOS % 0.9 % (0.0-3.0); LYMPH # 1.2 10^3/uL (1.5-5.0); LYMPH % 18.2 % (24.0-44.0); MONO # 0.4 10^3/uL (0.0-0.8); MONO % 6.8 % (2.0-8.0); NEUTROPHILS # 4.6 10^3/uL (1.5-8.5); NEUTROPHILS % 73.1 % (36.0-66.0); PLATELET COUNT, AUTOMATED 303 10^3/uL (150-450)
[2024-10-23 18:50] LABS: ERYTHROCYTE SEDIMENTATION RATE 5 mm/hr (0-20)
[2024-10-23 19:11] LABS: C REACTIVE PROTEIN QUANTITATIV < 0.50 MG/DL (<1.0); COMPLEMENT C4 32.3 MG/DL (12-36); CPK CREATINE PHOSPHOKINASE 110 U/L (34-145); MAGNESIUM LEVEL 2.1 MG/DL (1.8-2.4); PHOSPHORUS LEVEL 3.4 MG/DL (2.5-4.9)
[2024-10-23 19:15] LABS: FREE T4 1.07 NG/DL (0.89-1.76); TOTAL 25(OH) VITAMIN D 38.9 NG/ML (20.0-100.0)
[2024-10-25 07:52] LABS: T P ELECTROPHORESIS SO 7.6 g/dL (6.1-8.1)
[2024-10-25 13:33] LABS: EBV AB TO NUCLEAR ANTIGEN < 18.00 U/mL (<18.00); EBV VIRAL CAPSID AG IGG 627.00 U/mL (<18.00); EBV VIRAL CAPSID AG IGM < 36.00 U/mL (<36.00)
[2024-10-25 14:47] LABS: HSV 1 IGG TYPE SPECIFIC 49.70 index (<0.90); HSV 2 IGG TYPE SPECIFIC < 0.90 index (<0.90)
[2024-10-26 11:32] LABS: ALBUMIN SPEP 4.6 g/dL (3.8-4.8); ALPHA-1-GLOBULINS SO 0.3 g/dL (0.2-0.3); ALPHA-2-GLOBULINS SO 0.6 g/dL (0.5-0.9); BETA 2 GLOBULIN 0.4 g/dL (0.2-0.5); BETA-GLOBULIN SO 0.5 g/dL (0.4-0.6); GAMMA GLOBULINS SO 1.1 g/dL (0.8-1.7)
== END ==
LOC: M SFHCRHEU 15:23
PROVIDERS: ATTEND Internal Medicine
DX: R76.8 Other specified abnormal immunological findings in serum (principal); D72.810 Lymphocytopenia; R53.83 Other fatigue; M79.10 Myalgia, unspecified site

== ENCOUNTER → 2024-12-29 | Outpatient (CLI) | payer OTHER ==
[2024-12-30 07:03] LABS: T P ELECTROPHORESIS SO 6.1 g/dL (6.1-8.1)
[2024-12-31 13:31] LABS: EBV AB TO NUCLEAR ANTIGEN < 18.00 U/mL (<18.00); EBV VIRAL CAPSID AG IGG 473.00 U/mL (<18.00); EBV VIRAL CAPSID AG IGM < 36.00 U/mL (<36.00)
[2025-01-01 07:26] LABS: ALBUMIN SPEP 3.8 g/dL (3.8-4.8); ALPHA-1-GLOBULINS SO 0.2 g/dL (0.2-0.3); ALPHA-2-GLOBULINS SO 0.5 g/dL (0.5-0.9); BETA 2 GLOBULIN 0.4 g/dL (0.2-0.5); BETA-GLOBULIN SO 0.4 g/dL (0.4-0.6); GAMMA GLOBULINS SO 0.8 g/dL (0.8-1.7)
== END ==
LOC: M LAB 08:51
PROVIDERS: ATTEND Internal Medicine
DX: R77.8 Other specified abnormalities of plasma proteins (principal); R53.83 Other fatigue

== ENCOUNTER → 2025-02-12 | Outpatient (REF) | payer OTHER | LOC: M SFHCWAGY 17:01 | PROVIDERS: ATTEND Advanced Practice Midwife | DX: R30.9 Painful micturition, unspecified (principal) ==